=== PATIENT | female | born 1955 | race Caucasian/White ===

== ENCOUNTER 2018-10-28 17:10 | Inpatient (IN) | payer MEDICARE, OTHER ==
[~2018-10-28] VITALS: Ht 160 cm; Wt 79.9 kg
[2018-10-28 18:39] LABS: BASOPHILS ABSOLUTE AUTO 0.02 K/mm3 (0.00-0.23); BASOPHILS PERCENT AUTO 0 % (0-2); EOSINOPHILS PERCENT AUTO 0 % (0-6); Hematocrit 41.9 % (33.0-51.0); Hemoglobin 13.7 g/dL (11.5-16.0); IMMATURE GRAN ABSOLUTE AUTO 0.07 K/mm3 (0.00-0.10); IMMATURE GRAN PERCENT AUTO 0 % (0-1); LYMPHOCYTES ABSOLUTE AUTO 0.89 K/mm3 (0.84-5.20); LYMPHOCYTES PERCENT AUTO 6 % (21-46); MONOCYTES ABSOLUTE AUTO 0.82 K/mm3 (0.16-1.47); MONOCYTES PERCENT AUTO 5 % (4-13); Mean Corpuscular HGB 29.7 pg (26.0-34.0); Mean Corpuscular HGB Conc 32.7 g/dL (31.5-36.5); Mean Corpuscular Volume 91 fL (80-100); Mean Platelet Volume 8.7 fL (9.1-12.4); NEUTROPHILS ABSOLUTE AUTO 14.17 K/mm3 (1.96-9.15); NEUTROPHILS PERCENT AUTO 89 % (41-73); Platelet Count 277 K/mm3 (150-400); RDW Coefficient Variation 13.7 % (11.7-14.2); RDW Standard Deviation 46.1 fL (35.1-46.3); Red Blood Cell Count 4.62 M/mm3 (3.80-5.20); White Blood Cell Count 15.97 K/mm3 (4.00-11.30)
[2018-10-28 18:51] LABS: Alanine Aminotransfer (ALT/SGP 27 U/L (12-78); Albumin, Blood 3.7 g/dL (3.4-5.0); Alk Phos 66 U/L (50-136); Anion Gap 9 mmol/L (6-16); Aspartate Aminotrans (AST/SGOT 19 U/L (12-37); Bilirubin, Total 0.7 mg/dL (0.1-1.0); Blood Urea Nitrogen 18 mg/dL (8-24); Bun/Creatinine Ratio 30.2 (12.0-20.0); CO2, Blood 22 mmol/L (21-32); Calcium, Blood 9.1 mg/dL (8.5-10.1); Chloride, Blood 105 mmol/L (98-108); Globulin, Blood 3.6 g/dL (2.2-4.0); Glomerular Filtration Rate >60 (60-); Glucose, Blood 147 mg/dL (70-99); Potassium, Blood 3.8 mmol/L (3.5-5.5); Sodium, Blood 136 mmol/L (136-145); Total Protein, Blood 7.3 g/dL (6.4-8.2)
[2018-10-28] MEDS ORDERED: PROGESTERONE PO (21:07)
--- NOTE | 2018-10-29 07:19 | NUR ---
SHIFT SUMMARY PT ADMITTED LAST NIGHT FOR ACUTE APPY. SHE IS A&O, ABLE TO MAKE NEEDS KNOWN. SBA TO BR FOR PAIN. PT MEDICATED FOR PAIN AND NAUSEA PER EMAR, ABX RAN PER ORDERS. IV FLUIDS INFUSING. SURGICAL PACKET STARTED ON CHART. PT SHOULD BE AN ADD-ON TO THE SURGERY SCHEDULE TODAY. REPORT PASSED TO ONCOMING SHIFT.
--- NOTE | 2018-10-29 08:56 | NUR ---
RECEIVED CONSENT FROM PATIENT TO ASSIST WITH CARE AND ACCESS CHART. CC
--- NOTE | 2018-10-29 11:00 | NUR ---
3499 PAIN PATIENT REPORTS PAIN 10/10 AND LITTLE RELIEF AFTER FENTANYL. CALL PLACED TO DR GARCIA REGARDING PAIN
--- NOTE | 2018-10-29 11:02 | NUR ---
0915 PAIN PATIENT SLEEPING AFTER MEDICATED WITH DILAUDID, PATIENT REPORTS PAIN IS 3/10
--- NOTE | 2018-10-29 11:02 | NUR ---
0993 DAY SURGERY PATIENT TO DAY SURGERY PER CART
--- NOTE | 2018-10-29 11:03 | NUR ---
History, Chart, Medications and Allergies reviewed before start of procedure. Lungs clear T/O to Auscultation. Patient confirms NPO status and agrees with scheduled surgery.
--- NOTE | 2018-10-29 13:09 | NUR ---
POST OP RETURNED TO ROOM, AMBULATED TO BATHROOM WITH STANDBY ASSIST TO VOID. PATIENT REPORTS PAIN 4/10 WHEN COUGHS AND 0/10 PAIN WHEN LYING STILL. STERI STRIPS INTACT X3 ABD SITES
--- NOTE | 2018-10-29 16:36 | NUR ---
PAIN PATIENT STATES HAS NO PAIN AT REST, ONLY IF COUGHS
--- NOTE | 2018-10-29 18:09 | NUR ---
SUMMARY MEDICATED FOR PAIN WITH 1 TABLET NORCO. PATIENT REPORTS PAIN LEVEL 5 WITH COUGHING AND MOVEMENT. LOLA REG DIET WITHOUT NAUSE. ABD SITES WITH STERI STRIPS IN PLACE
--- NOTE | 2018-10-30 04:32 | NUR ---
SUMMARY: PT IS POD1 LAP APPY. NO ACUTE CHANGE TONIGHT. VSS, SURGICAL SITES WNL. PT TOLERATING REG DIET, NO N/V. WALKED IN CORRAL THIS AM, PAIN WELL MANAGED WITH 1 NARCO AND TORADOL. VOIDING. NO CONCERNS AT THIS TIME.
[2018-10-30 05:14] LABS: BASOPHILS ABSOLUTE AUTO 0.01 K/mm3 (0.00-0.23); BASOPHILS PERCENT AUTO 0 % (0-2); EOSINOPHILS PERCENT AUTO 0 % (0-6); Hematocrit 33.9 % (33.0-51.0); Hemoglobin 10.8 g/dL (11.5-16.0); IMMATURE GRAN ABSOLUTE AUTO 0.14 K/mm3 (0.00-0.10); IMMATURE GRAN PERCENT AUTO 1 % (0-1); LYMPHOCYTES PERCENT AUTO 6 % (21-46); MONOCYTES ABSOLUTE AUTO 0.66 K/mm3 (0.16-1.47); MONOCYTES PERCENT AUTO 4 % (4-13); Mean Corpuscular HGB 29.3 pg (26.0-34.0); Mean Corpuscular HGB Conc 31.9 g/dL (31.5-36.5); Mean Corpuscular Volume 92 fL (80-100); Mean Platelet Volume 8.6 fL (9.1-12.4); NEUTROPHILS ABSOLUTE AUTO 13.52 K/mm3 (1.96-9.15); NEUTROPHILS PERCENT AUTO 89 % (41-73); Platelet Count 217 K/mm3 (150-400); RDW Coefficient Variation 14.2 % (11.7-14.2); RDW Standard Deviation 48.5 fL (35.1-46.3); Red Blood Cell Count 3.69 M/mm3 (3.80-5.20); White Blood Cell Count 15.23 K/mm3 (4.00-11.30)
[2018-10-30 05:34] LABS: Anion Gap 5 mmol/L (6-16); Blood Urea Nitrogen 19 mg/dL (8-24); Bun/Creatinine Ratio 22.2 (12.0-20.0); CO2, Blood 27 mmol/L (21-32); Calcium, Blood 8.6 mg/dL (8.5-10.1); Chloride, Blood 102 mmol/L (98-108); Creatinine, Blood 0.86 mg/dL (0.40-1.00); Glomerular Filtration Rate >60 (60-); Glucose, Blood 115 mg/dL (70-99); Potassium, Blood 3.9 mmol/L (3.5-5.5); Sodium, Blood 134 mmol/L (136-145)
--- NOTE | 2018-10-30 07:36 | NUR ---
ASSESSMENT: PT SLEEPING. RESP E/U. NO S/S DISTRESS. BLANKETS OVER FACE AND MUSIC PLAYING IN ROOM. WILL ALLOW REST AND FULLY ASSESS WHEN PT IS AWAKE. CALL LIGHT IN REACH.
--- NOTE | 2018-10-30 09:04 | NUR ---
10/30/18 0904 Ginger Rodriguez VERIFICATIONS: EDIT CHART.
--- NOTE | 2018-10-30 12:05 | NUR ---
ROUNDING: DR IN TO SEE PATIENT. PLAN TO STAY AND REPEAT LABS IN AM TO MONITOR WBC.
--- NOTE | 2018-10-30 17:37 | NUR ---
PT HAS BEEN STABLE AND AFEBRILE THIS SHIFT. PT HAS ELEVATED WBC COUNT, REPEAT AM LABS. CONT IV ABX AND FLUIDS. PT LOLA DIET WELL WITHOUT NAUSEA. PT PASSING FLATUS AND HAD BM. SHOWER THIS AFTERNOON. PAIN CONTROLLED WITH PRN NORCO AND TORADOL. PT AMBULATED HALLWAY X2 AND SAT IN CHAIR. VOIDING WELL. INCISIONS CDI. USES CALL LIGHT APPROPRIATELY NEEDED.
--- NOTE | 2018-10-31 04:01 | NUR ---
SUMMARY: PT IS POD2 LAP APPY. NO ACUTE CHANGE TONIGHT. VSS, A/O, INDEPENDENT IN ROOM. PT MEDICATED WITH NARCO AND TORADOL FOR PAIN, REPORTS PAIN AT INCISION SITE. PT HAD LIQUID BM AND IS PASSING GAS. ANTIBIOTICS INFUSED. PT DENIES N/V. NO CONCERNS AT THIS TIME.
[2018-10-31 04:39] LABS: BASOPHILS ABSOLUTE AUTO 0.01 K/mm3 (0.00-0.23); BASOPHILS PERCENT AUTO 0 % (0-2); EOSINOPHILS ABSOLUTE AUTO 0.04 K/mm3 (0.00-0.68); EOSINOPHILS PERCENT AUTO 0 % (0-6); Hematocrit 33.9 % (33.0-51.0); IMMATURE GRAN ABSOLUTE AUTO 0.06 K/mm3 (0.00-0.10); IMMATURE GRAN PERCENT AUTO 1 % (0-1); LYMPHOCYTES ABSOLUTE AUTO 1.02 K/mm3 (0.84-5.20); LYMPHOCYTES PERCENT AUTO 9 % (21-46); MONOCYTES ABSOLUTE AUTO 0.59 K/mm3 (0.16-1.47); MONOCYTES PERCENT AUTO 5 % (4-13); Mean Corpuscular HGB Conc 32.4 g/dL (31.5-36.5); Mean Corpuscular Volume 92 fL (80-100); Mean Platelet Volume 8.7 fL (9.1-12.4); NEUTROPHILS ABSOLUTE AUTO 9.52 K/mm3 (1.96-9.15); NEUTROPHILS PERCENT AUTO 85 % (41-73); Platelet Count 230 K/mm3 (150-400); RDW Coefficient Variation 13.9 % (11.7-14.2); RDW Standard Deviation 47.6 fL (35.1-46.3); Red Blood Cell Count 3.67 M/mm3 (3.80-5.20); White Blood Cell Count 11.24 K/mm3 (4.00-11.30)
--- NOTE | 2018-10-31 07:05 | NUR ---
REPORT AND WALKING ROUNDS WITH TEJA JOVEL. PT ALERT AND ORIENTED. IV INFUSING. PT STATES SHE HAD A GOOD NIGHT.
--- NOTE | 2018-10-31 08:28 | NUR ---
PT MEDICATED WITH TORADOL AND NORCO PER REQUEST. PT FINISHED WITH BREAKFAST. STATES SHE VOIDED AND STOOLED THIS AM.
--- NOTE | 2018-10-31 09:36 | NUR ---
PT APPEARS TO BE SLEEPING. RESP EVEN AND NON LABORED. WILL CONT TO MONITOR.
--- NOTE | 2018-10-31 10:45 | NUR ---
PT RESTING IN POSITION OF COMFORT. EMY.
--- NOTE | 2018-10-31 11:25 | NUR ---
PT UP AMBULATING IN HALLS. DENIES NEEDS.
--- NOTE | 2018-10-31 12:20 | NUR ---
PT MEDICATED WITH NORCO FOR C/O PAIN 11/07. ZOSYN STARTED. PT BACK IN BED FOR A BIT. AWAITING DR GARCIA TO ROUND FOR DC.
--- NOTE | 2018-10-31 13:45 | NUR ---
PT AMBULATING IN HALLS. DENIES NEEDS.
--- NOTE | 2018-10-31 13:58 | NUR ---
DR GARCIA TO ROOM FOR RAFAEL AND LAURY.
[2018-10-31] MEDS ORDERED: Norco 5-325 Ta1 EACH PO (14:08)
[2018-10-31] MEDS ORDERED: Augmentin 875-1 EACH PO (14:09)
--- NOTE | 2018-10-31 14:19 | NUR ---
PT MEDICATED WITH TORADOL. IV DC, TIP INTACT, DRESSING PLACED. DISCUSSED DC WITH PT. PT AWAITING FRIEND TO COME PICK HER UP.
--- NOTE | 2018-10-31 14:45 | NUR ---
ASSISTED PT TO LOBBY WITH FAMILY.
== END 2018-10-31 14:47 | disposition home or self-care (01) | DRG 340 ==
LOC: ER 17:10 → ERHOLD 17:11 → SURS 17:11 → ERHOLD 17:11 → SURS 21:57
PROVIDERS: Emergency Medicine; Surgery; ADMIT Surgery
PROC: 0DTJ4ZZ Resection of Appendix, Percutaneous Endoscopic Approach (ICD-10-PCS; principal; 2018-10-29 11:15)
DX: K35.32 Acute appendicitis with perforation, localized peritonitis, and gangrene, without abscess (principal); Z87.891 Personal history of nicotine dependence
CPT/HCPCS: 36415; 74177; 80048; 80053; 83690; 85025; 88304; 96361; 96374-59; 96375; 96376; 99285-25; J0295; J0694; J1100; J1170; J1885; J2250; J2370; J2405; J2543; J2704; J2710; J3010; J7030; J7120; Q9967

== ENCOUNTER → 2020-02-03 | Outpatient (CLI) | payer MEDICARE, OTHER ==
[~2020-02-03] MED LIST: Augmentin 875-1 EACH PO; Norco 5-325 Ta1 EACH PO; PROGESTERONE PO
[2020-02-03 09:05] LABS: BASOPHILS ABSOLUTE AUTO 0.02 K/mm3 (0.00-0.23); BASOPHILS PERCENT AUTO 0 % (0-2); EOSINOPHILS ABSOLUTE AUTO 0.06 K/mm3 (0.00-0.68); EOSINOPHILS PERCENT AUTO 1 % (0-6); Hematocrit 41.4 % (33.0-51.0); Hemoglobin 13.7 g/dL (11.5-16.0); IMMATURE GRAN ABSOLUTE AUTO 0.01 K/mm3 (0.00-0.10); IMMATURE GRAN PERCENT AUTO 0 % (0-1); LYMPHOCYTES ABSOLUTE AUTO 1.62 K/mm3 (0.84-5.20); LYMPHOCYTES PERCENT AUTO 30 % (21-46); MONOCYTES ABSOLUTE AUTO 0.43 K/mm3 (0.16-1.47); MONOCYTES PERCENT AUTO 8 % (4-13); Mean Corpuscular HGB 29.5 pg (26.0-34.0); Mean Corpuscular HGB Conc 33.1 g/dL (31.5-36.5); Mean Corpuscular Volume 89 fL (80-100); Mean Platelet Volume 8.5 fL (9.1-12.4); NEUTROPHILS ABSOLUTE AUTO 3.31 K/mm3 (1.96-9.15); NEUTROPHILS PERCENT AUTO 61 % (41-73); Platelet Count 263 K/mm3 (150-400); RDW Coefficient Variation 13.2 % (11.7-14.2); RDW Standard Deviation 42.8 fL (35.1-46.3); Red Blood Cell Count 4.64 M/mm3 (3.80-5.20); White Blood Cell Count 5.45 K/mm3 (4.00-11.30)
== END | disposition home or self-care (01) ==
LOC: LAB EV 08:59 → LAB SHORT 08:59
PROVIDERS: Physician Assistant
DX: R19.7 Diarrhea, unspecified (principal)
CPT/HCPCS: 85025

== ENCOUNTER 2021-09-15 07:55 | Day surgery (SDC) | payer BC, MEDICARE, OTHER ==
[~2021-09-15] VITALS: Ht 165.1 cm; Wt 91.9 kg
[~2021-09-15 07:55] MED LIST changes: +URSO300 PO
[2021-09-15] MEDS ORDERED: FISH OIL 1,2001 EAC7 PO (08:35)
--- NOTE | 2021-09-15 09:18 | NUR ---
09/15/21 0918 Berny Aranda 2 GREEN COLORED BRUISES NOTED ON LATERAL ASPECT OF RIGHT LOWER EXTREMITY. 0.51ML OF EPI 1MG/ML ADDED TO 30ML OF BUPIVICAINE 0.5% TO CREATE A SOLUTION OF BUPIVICAINE 0.5% WITH EPI 1:200,000.
--- NOTE | 2021-09-15 10:27 | NUR ---
09/15/21 1027 GAVIOTA BEDOYA PT STATES PAIN NOW A 12/08. FENTANYL 50MCG GIVEN IV- 2ND DOSE.
== END 2021-09-15 11:50 | disposition home or self-care (01) ==
LOC: ORSCSDS 07:55
PROVIDERS: Podiatrist Foot & Ankle Surgery
PROC: 0SSF04Z Reposition Right Ankle Joint with Internal Fixation Device, Open Approach (ICD-10-PCS; principal; 2021-09-15 09:15)
DX: S93.431A Sprain of tibiofibular ligament of right ankle, initial encounter (principal); E11.9 Type 2 diabetes mellitus without complications; K21.9 Gastro-esophageal reflux disease without esophagitis; Z79.899 Other long term (current) drug therapy; E66.9 Obesity, unspecified; Z68.33 Body mass index [BMI] 33.0-33.9, adult
CPT/HCPCS: 82947; A9270; C1713; C1776; J0171; J1100; J1170; J2250; J2405; J2704; J3010

== ENCOUNTER → 2023-08-07 | Outpatient (CLI) | payer OTHER ==
[~2023-08-07] MED LIST changes: +FISH OIL 1,2001 EAC7 PO
[2023-08-07 08:14] LABS: BASOPHILS ABSOLUTE AUTO 0.04 K/mm3 (0.00-0.23); BASOPHILS PERCENT AUTO 1 % (0-2); EOSINOPHILS ABSOLUTE AUTO 0.16 K/mm3 (0.00-0.68); EOSINOPHILS PERCENT AUTO 2 % (0-6); Hematocrit 43.9 % (33.0-51.0); Hemoglobin 14.3 g/dL (11.5-16.0); IMMATURE GRAN ABSOLUTE AUTO 0.01 K/mm3 (0.00-0.10); IMMATURE GRAN PERCENT AUTO 0 % (0-1); LYMPHOCYTES ABSOLUTE AUTO 2.21 K/mm3 (0.84-5.20); LYMPHOCYTES PERCENT AUTO 33 % (21-46); MONOCYTES ABSOLUTE AUTO 0.41 K/mm3 (0.16-1.47); MONOCYTES PERCENT AUTO 6 % (4-13); Mean Corpuscular HGB 28.5 pg (26.0-34.0); Mean Corpuscular HGB Conc 32.6 g/dL (31.5-36.5); Mean Corpuscular Volume 88 fL (80-100); Mean Platelet Volume 8.3 fL (9.1-12.4); NEUTROPHILS ABSOLUTE AUTO 3.78 K/mm3 (1.96-9.15); NEUTROPHILS PERCENT AUTO 57 % (41-73); Platelet Count 304 K/mm3 (150-400); RDW Coefficient Variation 14.9 % (11.7-14.2); RDW Standard Deviation 47.5 fL (35.1-46.3); Red Blood Cell Count 5.01 M/mm3 (3.80-5.20); White Blood Cell Count 6.61 K/mm3 (4.00-11.30)
== END | disposition home or self-care (01) ==
LOC: LAB SHORT 08:11 → LAB 08:11
PROVIDERS: Physician Assistant
DX: R22.2 Localized swelling, mass and lump, trunk (principal)
CPT/HCPCS: 85025

== ENCOUNTER → 2024-01-20 | Outpatient (CLI) | payer OTHER | END | disposition home or self-care (01) | LOC: LAB 07:56 → LAB SHORT 07:56 | DX: L82.0 Inflamed seborrheic keratosis (principal) | CPT/HCPCS: 88305 ==